=== PATIENT | female | born 1990 | race African-American/Black ===

== ENCOUNTER 2020-08-27 22:12 | Emergency (ER) | payer MEDICAID ==
[~2020-08-27] VITALS: Ht 157.5 cm; Wt 88.5 kg
[2020-08-27 22:13] VITALS: BP 114/75
== END 2020-08-27 23:55 | disposition left against medical advice (07) ==
LOC: ER 22:12
DX: R10.31 Right lower quadrant pain (principal); Z53.21 Procedure and treatment not carried out due to patient leaving prior to being seen by health care provider